=== PATIENT | male | born 1955 | race Caucasian/White ===

== ENCOUNTER → 2021-12-27 | Day surgery (SDC) | payer MEDICARE ==
[2021-12-26 10:34] LABS: BASOPHILS # (AUTO) 0.1 (0.0-0.1); BASOPHILS % 1.8 % (0.0-1.0); EOSINOPHILS # (AUTO) 0.8 (0.0-0.4); EOSINOPHILS % 13.5 % (0.0-6.0); HEMATOCRIT 39.8 % (38.2-49.6); HEMOGLOBIN 13.1 g/dL (14.0-18.0); LYMPHOCYTES # (AUTO) 1.7 (1.0-3.2); LYMPHOCYTES % 28.7 % (18.0-39.1); MEAN CORPUSCULAR HEMOGLOBIN 27.4 pg (28-32); MEAN CORPUSCULAR HGB CONC 32.9 g/dL (31-35); MEAN CORPUSCULAR VOLUME 83.3 fL (81-99); MONOCYTES # (AUTO) 0.5 (0.2-0.8); MONOCYTES % 8.6 % (4.4-11.3); NEUTROPHILS # (AUTO) 2.9 (2.1-6.9); NEUTROPHILS % 47.1 % (38.7-80.0); PLATELET COUNT 246 x10e3/uL (140-360); RED BLOOD COUNT 4.78 x10e6/uL (4.3-5.7); RED CELL DISTRIBUTION WIDTH 14.3 % (11.7-14.4)
[2021-12-26 10:55] LABS: ANION GAP 10.2 mmol/L (8-16); CALCIUM 9.3 mg/dL (8.4-10.2); CREATININE, SERUM 1.04 mg/dL (0.72-1.25); POTASSIUM 5.2 mmol/L (3.5-5.1)
[~2021-12-27] MED LIST: ASPIRIN81 MG PO; BASAGLAR K100 UNIT/1 SC; CALCIUM ACETAT667 M1 PO; CEFTRIAXONE 1 GM VIAL ONE; FINASTERIDE5 MG PO; INSULIN REGULAR, HUMAN 100 UNIT/1 ML ONE; IOPAMIDOL 300MG/ML 50ML INFUS..BTL IV ONE; LIPITOR10 MG PO; METOCLOPRAMIDE10 MG PO; METOPROLOL TART25 MG PO; MULTI-VITAMIN1 EACH PO; OMEPRAZOLE40 MG PO; PLAVIX75 MG PO; SODIUM CHLORIDE 0.9% 50ML 50 ML ONE; SUCRALFATE1 GM PO; VITAMIN D310 MCG PO
[2021-12-27 08:00] VITALS: BP 135/64
== END | disposition home or self-care (01) ==
LOC: OR 05:26
PROVIDERS: ATTEND Urology
DX: R31.29 Other microscopic hematuria (principal); E11.9 Type 2 diabetes mellitus without complications; I25.810 Atherosclerosis of coronary artery bypass graft(s) without angina pectoris; I10 Essential (primary) hypertension; I25.2 Old myocardial infarction; Z01.812 Encounter for preprocedural laboratory examination; Z79.82 Long term (current) use of aspirin; Z79.02 Long term (current) use of antithrombotics/antiplatelets; Z79.4 Long term (current) use of insulin; Z79.899 Other long term (current) drug therapy; Z95.1 Presence of aortocoronary bypass graft
CPT/HCPCS: 36415 ×2; 52005; 74420; 80048; 82948; 85025; C1758; J0696; Q9967; J1817